=== PATIENT | male | born 2000 | race Caucasian/White ===

== ENCOUNTER 2024-03-02 16:46 | Emergency (ER) | payer OTHER ==
[~2024-03-02] VITALS: Ht 180.3 cm; Wt 88.8 kg
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
[2024-03-02] MEDS ORDERED: CEPH250C PO (18:43)
[2024-03-02] MEDS ORDERED: IBUP-1455 PO (18:43)
[2024-03-02 18:48] VITALS: PULSE 97; O2SAT 98
[2024-03-02 18:51] VITALS: BP 123/72; PULSE 89; RESP 18; TEMP 99; O2SAT 98
[2024-03-02] MEDS: CEPHALEXIN 250 MG CAP PO ONE (18:51)
== END 2024-03-02 18:55 | disposition home or self-care (01) ==
LOC: ER 16:46
DX: S01.21XA Laceration without foreign body of nose, initial encounter (principal); S01.511A Laceration without foreign body of lip, initial encounter; W16.832A Jumping or diving into other water striking wall causing other injury, initial encounter; Y93.89 Activity, other specified; Y92.89 Other specified places as the place of occurrence of the external cause; Y99.8 Other external cause status
CPT/HCPCS: 12011